=== PATIENT | female | born 1985 | race American Indian/Alaskan Native ===

== ENCOUNTER 2019-03-02 23:48 | Emergency (ER) | payer SELFPAY ==
[2019-03-03 00:31] VITALS: BP 112/69
--- NOTE | 2019-03-03 02:49 | Emergency Department Report ---
ED ENT HPI - General Chief complaint: Earache Stated complaint: LEFT SIDE HEARING LOSS Time Seen by Provider: 03/03/19 01:51 Source: family Mode of arrival: Ambulatory Limitations: No Limitations - History of Present Illness MD complaint: ear pain -: Gradual, days(s) (3) Location: L ear Severity: mild Consistency: constant Associated Symptoms: denies: cough, gum swelling, toothache, sore throat, tinnitus, discharge from ear, rhinorrhea - Related Data Previous Rx's Medication Instructions Recorded Last Taken Type Amoxicillin/Potassium Clav 1 each PO BID #20 tablet 03/03/19 Unknown Rx [Augmentin 875-125 Tablet] Neomy/Polymyx B/Hc (Otic) Soln 4 drops OT TID #1 bottle 03/03/19 Unknown Rx [Cortisporin (Otic) Soln] Allergies Allergy/AdvReac Type Severity Reaction Status Date / Time morphine AdvReac Itching Verified 03/02/19 23:52 ED Dental HPI - General Chief complaint: Earache Stated complaint: LEFT SIDE HEARING LOSS Time Seen by Provider: 03/03/19 01:51 Source: family Mode of arrival: Ambulatory Limitations: No Limitations - Related Data Previous Rx's Medication Instructions Recorded Last Taken Type Amoxicillin/Potassium Clav 1 each PO BID #20 tablet 03/03/19 Unknown Rx [Augmentin 875-125 Tablet] Neomy/Polymyx B/Hc (Otic) Soln 4 drops OT TID #1 bottle 03/03/19 Unknown Rx [Cortisporin (Otic) Soln] Allergies Allergy/AdvReac Type Severity Reaction Status Date / Time morphine AdvReac Itching Verified 03/02/19 23:52 ED Review of Systems ROS: Stated complaint: LEFT SIDE HEARING LOSS Other details as noted in HPI Comment: All other systems reviewed and negative ED Past Medical Hx - Past Medical History Previous Medical History?: No - Surgical History Hx Cholecystectomy: Yes - Social History Smoking Status: Never Smoker Substance Use Type: None - Medications Home Medications: Home Medications Medication Instructions Recorded Confirmed Last Taken Type Amoxicillin/Potassium Clav 1 each PO BID #20 tablet 03/03/19 Unknown Rx [Augmentin 875-125 Tablet] Neomy/Polymyx B/Hc (Otic) Soln 4 drops OT TID #1 bottle 03/03/19 Unknown Rx [Cortisporin (Otic) Soln] ED Physical Exam - General Limitations: No Limitations General appearance: alert, in no apparent distress - Head Head exam: Present: atraumatic, normocephalic - Eye Eye exam: Present: normal appearance - ENT ENT exam: Present: mucous membranes moist, TM's normal bilaterally, other (back there is some swelling to the ear canal CERUMEN present. There is injection to the tympanic membrane with small effusion. No mastoid tenderness. No preauricular or postauricular lymphadenopathy.) - Neck Neck exam: Present: normal inspection, full ROM. Absent: tenderness, lymphadenopathy - Respiratory Respiratory exam: Present: normal lung sounds bilaterally. Absent: respiratory distress - Cardiovascular Cardiovascular Exam: Present: regular rate, normal rhythm. Absent: systolic murmur, diastolic murmur, rubs, gallop - GI/Abdominal GI/Abdominal exam: Present: soft, normal bowel sounds - Extremities Exam Extremities exam: Present: normal inspection - Back Exam Back exam: Present: normal inspection - Neurological Exam Neurological exam: Present: alert, oriented X3 - Psychiatric Psychiatric exam: Present: normal affect, normal mood - Skin Skin exam: Present: warm, dry, intact, normal color. Absent: rash ED Course Vital Signs 03/03/19 00:28 Temperature 98.5 F Pulse Rate 78 Respiratory 16 Rate Blood Pressure 112/69 O2 Sat by Pulse 98 Oximetry Critical care attestation.: If time is entered above; I have spent that time in minutes in the direct care of this critically ill patient, excluding procedure time. ED Disposition Clinical Impression: Otitis Disposition: DC-01 TO HOME OR SELFCARE Is pt being admited?: No Does the pt Need Aspirin: No Condition: Stable Instructions: Otitis Externa (ED), Otitis Media (ED) Prescriptions: Amoxicillin/Potassium Clav [Augmentin 875-125 Tablet] 1 each PO BID #20 tablet Neomy/Polymyx B/Hc (Otic) Soln [Cortisporin (Otic) Soln] 4 drops OT TID #1 bottle Referrals: RENNY RAYMOND MD [Primary Care Provider] - 3-5 Days
== END 2019-03-03 02:40 | disposition home or self-care (01) ==
LOC: ED 23:48
DX: H66.92 Otitis media, unspecified, left ear (principal); Z90.49 Acquired absence of other specified parts of digestive tract; Z79.899 Other long term (current) drug therapy; Z88.6 Allergy status to analgesic agent
CPT/HCPCS: 99282